=== PATIENT | female | born 2000 | race Caucasian/White ===

== ENCOUNTER 2020-04-14 11:49 | Emergency (ER) | payer OTHER ==
[~2020-04-14] VITALS: Ht 167.6 cm; Wt 79.4 kg
[2020-04-14 11:55] VITALS: BP_SYST 129
--- NOTE | 2020-04-14 11:59 | NUR ---
AMBULATED TO BED 8
--- NOTE | 2020-04-14 12:06 | NUR ---
Pt came to ER for L arm tingling and numbness with pain rated 7/10. 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 Pt resting in gurney comfortably, no distress noted, MD to evaluate.
--- NOTE | 2020-04-14 12:11 | NUR ---
ER at bedside examining patient.
[2020-04-14 13:10] VITALS: BP_SYST 125
--- NOTE | 2020-04-14 13:11 | NUR ---
Patient given written and verbal discharge instructions and verbalizes understanding. ER MD discussed with patient the results and treatment provided. Patient in stable condition. ID arm band removed. Rx of motrin given. Patient educated on pain management and to follow up with PMD. Pain Scale 0/10. Opportunity for questions provided and answered. Medication side effect fact sheet provided.
== END 2020-04-14 13:11 | disposition home or self-care (01) ==
LOC: SED 11:49
DX: M77.8 Other enthesopathies, not elsewhere classified (principal)
CPT/HCPCS: 99282